=== PATIENT | male | born 1970 | race Caucasian/White ===

== ENCOUNTER 2019-11-05 22:51 | Emergency (ER) | payer OTHER ==
[~2019-11-05] VITALS: Ht 175.3 cm; Wt 110.7 kg
[2019-11-05 22:57] VITALS: Ht 175.3 cm; Wt 110.7 kg
[2019-11-06 02:19] VITALS: BP 140/60
== END 2019-11-06 02:14 | disposition home or self-care (01) ==
LOC: ED 22:51
DX: S61.213A Laceration without foreign body of left middle finger without damage to nail, initial encounter (principal); W45.8XXA Other foreign body or object entering through skin, initial encounter; Y93.89 Activity, other specified; Y92.89 Other specified places as the place of occurrence of the external cause; Y99.8 Other external cause status
CPT/HCPCS: 90715; J2001

== ENCOUNTER 2019-11-10 14:30 | Emergency (ER) | payer OTHER ==
[~2019-11-10] VITALS: Ht 177.8 cm; Wt 108.0 kg
[2019-11-10 14:37] VITALS: BP 134/82; Ht 177.8 cm; Wt 108.0 kg
== END 2019-11-10 15:10 | disposition home or self-care (01) ==
LOC: ED 14:30
DX: S61.213D Laceration without foreign body of left middle finger without damage to nail, subsequent encounter (principal); X58.XXXD Exposure to other specified factors, subsequent encounter